=== PATIENT | female | born 1990 | race American Indian/Alaskan Native ===

== ENCOUNTER 2017-11-25 09:01 | Emergency (ER) | payer OTHER ==
--- NOTE | 2017-11-25 11:40 | Emergency Department Report ---
- General Chief Complaint: Upper Respiratory Infection Stated Complaint: BODYACHE,COUGH,HEADACHE Time Seen by Provider: 11/25/17 11:33 Source: patient Mode of arrival: Ambulatory Limitations: No Limitations - History of Present Illness MD Complaint: fever, cough -: week(s) Consistency: constant Associated Symptoms: fever, chills - Related Data Previous Rx's Medication Instructions Recorded Last Taken Type Ipratropium/Albuter (Nf) 0.075 gm PO BID PRN #1 inh 10/07/13 Unknown Rx [Combivent Inhaler] Prednisone 20 mg PO BID #6 tablet 10/07/13 Unknown Rx Acetaminophen/Codeine [Tylenol 1 tab PO Q6H PRN #14 tab 06/18/15 Unknown Rx /Codeine # 3 tab] Cyclobenzaprine [Flexeril 10 MG 10 mg PO TID PRN #15 tablet 06/18/15 Unknown Rx TAB] Ibuprofen [Motrin 800 MG tab] 800 mg PO Q8HR PRN #30 tablet 06/18/15 Unknown Rx Allergies Allergy/AdvReac Type Severity Reaction Status Date / Time No Known Allergies Allergy Unverified 10/07/13 11:51 ED Review of Systems ROS: Stated complaint: BODYACHE,COUGH,HEADACHE Other details as noted in HPI Comment: All other systems reviewed and negative Respiratory: cough. denies: shortness of breath, SOB with exertion Cardiovascular: denies: chest pain, palpitations, dyspnea on exertion Gastrointestinal: denies: nausea, vomiting ED Past Medical Hx - Past Medical History Hx Asthma: Yes - Surgical History Past Surgical History?: No - Social History Smoking Status: Never Smoker Substance Use Type: None - Medications Home Medications: Home Medications Medication Instructions Recorded Confirmed Last Taken Type Ipratropium/Albuter (Nf) 0.075 gm PO BID PRN #1 inh 10/07/13 Unknown Rx [Combivent Inhaler] Prednisone 20 mg PO BID #6 tablet 10/07/13 Unknown Rx Acetaminophen/Codeine [Tylenol 1 tab PO Q6H PRN #14 tab 06/18/15 Unknown Rx /Codeine # 3 tab] Cyclobenzaprine [Flexeril 10 MG 10 mg PO TID PRN #15 tablet 06/18/15 Unknown Rx TAB] Ibuprofen [Motrin 800 MG tab] 800 mg PO Q8HR PRN #30 tablet 06/18/15 Unknown Rx ED Physical Exam - General Limitations: No Limitations General appearance: alert, in no apparent distress - Head Head exam: Present: atraumatic, normocephalic - Eye Eye exam: Present: normal appearance - ENT ENT exam: Present: normal exam, normal orophraynx, mucous membranes moist - Neck Neck exam: Present: normal inspection, full ROM - Respiratory Respiratory exam: Present: normal lung sounds bilaterally. Absent: respiratory distress, wheezes, rales, rhonchi, chest wall tenderness - Cardiovascular Cardiovascular Exam: Present: regular rate, normal rhythm, normal heart sounds - GI/Abdominal GI/Abdominal exam: Present: soft, normal bowel sounds. Absent: distended, tenderness, guarding, rebound, rigid, organomegaly, mass, pulsatile mass - Extremities Exam Extremities exam: Present: normal inspection, normal capillary refill - Back Exam Back exam: Present: normal inspection, full ROM. Absent: CVA tenderness (L) - Neurological Exam Neurological exam: Present: alert, oriented X3, CN II-XII intact, normal gait - Skin Skin exam: Present: warm, intact, normal color. Absent: cyanosis, diaphoretic, erythema ED Course Vital Signs 11/25/17 09:12 Temperature 98.2 F Pulse Rate 102 H Respiratory 18 Rate Blood Pressure 149/72 O2 Sat by Pulse 99 Oximetry Critical care attestation.: If time is entered above; I have spent that time in minutes in the direct care of this critically ill patient, excluding procedure time. ED Disposition Clinical Impression: Acute bronchitis Disposition: DC-01 TO HOME OR SELFCARE Is pt being admited?: No Condition: Stable Instructions: Acute Bronchitis (ED) Referrals: PRIMARY CARE, [Primary Care Provider] - 3-5 Days
[2017-11-25 11:53] VITALS: BP 129/80
== END 2017-11-25 11:52 | disposition home or self-care (01) ==
LOC: ED 09:01
DX: J20.9 Acute bronchitis, unspecified (principal)
CPT/HCPCS: 99282

== ENCOUNTER 2018-12-01 11:55 | Emergency (ER) | payer OTHER ==
--- NOTE | 2018-12-01 12:01 | Emergency Department Report ---
Blank Doc - Documentation Documentation: 28 y/o with pmh of asthma and Pre diabetes presents to ED c/o of continued sob and dyspnea despite multiple breathing treatments. Phoned EMS yesterday whom gave her a treatment as well. Symptoms improve with treatment but return to dyspnea 1-2 hours post treatment. No DVT history Plan CXR Possible sterioids and b2 agonist
[2018-12-01 12:02] VITALS: BP 136/78
[2018-12-01] MEDS ORDERED: PROVENTIL IH ONE (12:16)
[2018-12-01] MEDS ORDERED: ATROVENT IH ONE (12:16)
[2018-12-01] MEDS ORDERED: DELTASONE PO ONE (12:16)
--- NOTE | 2018-12-01 12:24 | XRay Report ---
ROUTINE CHEST, TWO VIEWS: HISTORY: Cough, wheezing. The trachea, heart, mediastinal contour, lung zapata and bony thorax are unremarkable. IMPRESSION: Unremarkable chest x-ray.
--- NOTE | 2018-12-01 13:15 | Emergency Department Report ---
Minor Respiratory - HPI Chief Complaint: Upper Respiratory Infection Stated Complaint: SOB/CHEST PAIN Time Seen by Provider: 12/01/18 11:58 Duration: 2 Days Severity: moderate Minor Respiratory: Yes Able to Tolerate Fluids, Yes Cough, No Rhinorrhea, No Sore Throat, No Ear Pain, No Sick Contacts, No Hemoptysis, No Chest Pain, No Shortness of Breath, No Fever Other History: Patient has a history of asthma. Patient states her albuterol pump is not working. She called paramedics yesterday and was given a neb treatment at home which did alleviate her symptoms which is why she declined being transported to the hospital however she states that her symptoms returned. Patient is continued to have nonproductive cough and a mild wheeze. ED Review of Systems ROS: Stated complaint: SOB/CHEST PAIN Other details as noted in HPI Comment: All other systems reviewed and negative ED Past Medical Hx - Past Medical History Hx Diabetes: (Prediabetes) Hx Asthma: Yes - Surgical History Past Surgical History?: No - Social History Smoking Status: Never Smoker Substance Use Type: Alcohol - Medications Home Medications: Home Medications Medication Instructions Recorded Confirmed Last Taken Type Ipratropium/Albuter (Nf) 0.075 gm PO BID PRN #1 inh 10/07/13 Unknown Rx [Combivent Inhaler] Prednisone 20 mg PO BID #6 tablet 10/07/13 Unknown Rx Acetaminophen/Codeine [Tylenol 1 tab PO Q6H PRN #14 tab 06/18/15 Unknown Rx /Codeine # 3 tab] Cyclobenzaprine [Flexeril 10 MG 10 mg PO TID PRN #15 tablet 06/18/15 Unknown Rx TAB] Ibuprofen [Motrin 800 MG tab] 800 mg PO Q8HR PRN #30 tablet 06/18/15 Unknown Rx Amoxicillin [Amoxicillin TAB] 875 mg PO BID #14 tablet 11/25/17 Unknown Rx guaiFENesin/CODEINE [Robitussin AC] 10 ml PO TID PRN #100 ml 11/25/17 Unknown Rx ALBUTEROL Inhaler (OR & NICU) 2 puff IH QID PRN #1 inhalation 12/01/18 Unknown Rx [ProAir HFA Inhaler] predniSONE [Deltasone] 10 mg PO .TAPER #21 tab 12/01/18 Unknown Rx Minor Respiratory Exam - Exam General: Vital signs noted. No distress. Alert and acting appropriately. HEENT: Yes Moist Mucous Membranes, No Pharyngeal Erythema, No Pharyngeal Exudates, No Rhinorrhea, No Conjuctival Injection, No Frontal Tenderness, No Maxillary Tenderness Ear: Neither TM Bulge, Neither TM Erythema, Neither EAC Pain, Neither EAC Discharge Neck: Yes Supple, No Adenopathy Lungs: Yes Good Air Exchange, Yes Wheezes, No Ronchi, No Stridor, No Cough, No Labored Respirations, No Retractions, No Use of Accessory Muscles, No Other Abnormal Lung Sounds Heart: Yes Regular, No Murmur Abdomen: Yes Normal Bowel Sounds, No Tenderness, No Peritoneal Signs Skin: No Rash, No Edema Neurologic: Alert and oriented, no deficits. Musculoskeletal: Unremarkable. ED Course Vital Signs 12/01/18 12/01/18 12:00 12:37 Temperature 97.9 F Pulse Rate 101 H Pulse Rate [ 88 Bilateral] Pulse Rate [ 96 H Throughout] Respiratory 20 Rate Respiratory 16 Rate [Bilateral ] Respiratory 16 Rate [ Throughout] Blood Pressure 136/78 O2 Sat by Pulse 98 Oximetry ED Medical Decision Making - Radiology Data Radiology results: report reviewed (chest x-ray is within normal limits) - Medical Decision Making Patient received a neb treatment here in emergency department which did help her symptoms and she'll be discharged home. Critical Care Time: Yes (30) Critical care attestation.: If time is entered above; I have spent that time in minutes in the direct care of this critically ill patient, excluding procedure time. ED Disposition Clinical Impression: Asthma exacerbation Qualifiers: Asthma severity: moderate Asthma persistence: unspecified Qualified Code(s): J45.901 - Unspecified asthma with (acute) exacerbation Disposition: TO HOME OR SELFCARE Is pt being admited?: No Does the pt Need Aspirin: No Condition: Stable Instructions: Asthma (ED) Time of Disposition: 13:15
== END 2018-12-01 13:34 | disposition home or self-care (01) ==
LOC: ED 11:55
DX: J45.901 Unspecified asthma with (acute) exacerbation (principal)
CPT/HCPCS: 71046; 94640; 99284; J7512